=== PATIENT | female | born 1970 | race Caucasian/White ===

== ENCOUNTER 2024-05-24 01:52 | Inpatient (IN) | payer OTHER ==
[2024-05-24 02:16] VITALS: BMI 28.1
[2024-05-24] MEDS ORDERED: guaiFENesin 600 MG TABLET.ER (FP) PO PRN (03:04)
[2024-05-24] MEDS ORDERED: BENZONATATE 200 MG CAPSULE PO PRN (03:04)
[2024-05-24] MEDS ORDERED: NALOXONE (NARCAN) HCL 4 MG/0.1 ML SPRAY NS PRN (03:04)
[2024-05-24] MEDS ORDERED: BENZOCAINE/MENTHOL (CHLORASEPTIC ) LOZENGE MM PRN (03:04)
[2024-05-24] MEDS ORDERED: ACETAMINOPHEN 325 MG TABLET (FP) ONE (03:51)
[2024-05-24] MEDS: ACETAMINOPHEN 325 MG TABLET (FP) PO PRN (03:57)
[2024-05-24] MEDS ORDERED: methaDONE HCL 10 MG TABLET PO SCH (08:15)
[2024-05-24 08:29] LABS: HEMATOCRIT 33.5 % (32.4-45.2); HEMOGLOBIN 11.1 GM/dL (10.7-15.3); MCH 29.2 pg (25.7-33.7); MCHC 33.2 g/dl (32.0-36.0); MEAN PLT VOLUME 7.6 fl (7.5-11.1); PLATELET COUNT 364 10^3/uL (134-434); RBC 3.81 M/mm3 (3.60-5.2); WHITE BLOOD COUNT 6.8 K/mm3 (4.0-10.0)
[2024-05-24] MEDS ORDERED: methaDONE 80 MG, methaDONE 10 MG PO SCH (08:30)
[2024-05-24 09:25] LABS: POTASSIUM 3.4 mmol/L (3.5-5.1); SODIUM 138 mmol/L (136-145)
[2024-05-24 09:26] LABS: CHLORIDE 104 mmol/L (98-107)
[2024-05-24 09:35] LABS: ALBUMIN 3.5 g/dl (3.4-5.0); GLUCOSE,RANDOM 96 mg/dL (74-106)
[2024-05-24 09:36] LABS: ANION GAP 6 mmol/L (4-13); BLOOD UREA NITROGEN 9.2 mg/dL (7-18); CO2 29 mmol/L (21-32)
[2024-05-24 09:38] LABS: CREATININE 0.9 mg/dL (0.55-1.3); SGOT/AST 122 U/L (15-37); SGPT/ALT 159 U/L (13-61)
[2024-05-24 09:40] LABS: BILIRUBIN,TOTAL 0.3 mg/dL (0.2-1); TOT PROT 6.5 g/dl (6.4-8.2)
[2024-05-24 09:41] LABS: ALK PHOS 179 U/L (45-117)
[2024-05-24] MEDS: PRENATAL VITAMINS W/ FOLIC ACID TABLET (FP) PO SCH (10:05)
[2024-05-24] MEDS: IBUPROFEN 600 MG TABLET (FP) PO PRN (10:16)
[2024-05-24] MEDS: NICOTINE 14 MG/24 HOURS TOPICAL PATCH TD SCH (10:16)
[2024-05-24] MEDS: methaDONE 80 MG, methaDONE 10 MG PO SCH (10:19)
[2024-05-24] MEDS: NICOTINE POLACRILEX 4 MG GUM BUC PRN (10:21)
[2024-05-24] MEDS: MAGNESIUM HYDROX 2400MG/30ML ORAL SUSPENSION 30 ML CUP PO PRN (11:34)
[2024-05-24 11:56] LABS: SYPHILIS W/ RPR CONF NON-REACTIVE (NONREACTIVE)
[2024-05-24 19:28] LABS: URINE APPEARANCE CLEAR; URINE BILIRUBIN NEGATIVE (NEGATIVE); URINE COLOR YELLOW; URINE GLUCOSE (UA) NEGATIVE (NEGATIVE); URINE KETONE NEGATIVE (NEGATIVE); URINE LEUK ESTERASE NEGATIVE (NEGATIVE); URINE NITRITE NEGATIVE (NEGATIVE); URINE PROTEIN NEGATIVE (NEGATIVE); URINE UROBILINOGEN 0.2 mg/dL (0.2-1.0)
[2024-05-24] MEDS: MELATONIN 5 MG TABLETS PO SCH (21:41)
[2024-05-24] MEDS: hydrOXYzine PAMOATE 25 MG CAPSULE (FP) PO PRN (21:41)
[2024-05-24] MEDS: THIAMINE 100 MG TABLET PO SCH (21:41)
[2024-05-25] MEDS: clonazePAM 0.5 MG ODT TABLETS SL SCH (09:53)
[2024-05-25] MEDS: FLUoxetine HCL 20 MG CAPSULE PO SCH (09:53)
[2024-05-25] MEDS: BACLOFEN 10 MG TABLET (FP) PO SCH (12:27)
[2024-05-25] MEDS: PNEUMOC 20-VAL CONJ-DIP CRM/PF 0.5 ML SYRINGE IM ONE (12:29)
[2024-05-25] MEDS: SUMAtriptan SUCCINATE 25 MG TABLET PO PRN (14:49)
[2024-05-25] MEDS: DICLOFENAC SODIUM 25 MG TABLET.DR PO PRN (19:00)
[2024-05-25] MEDS: IBUPROFEN 400 MG TABLET (FP) PO PRN (21:20)
[2024-05-26] MEDS: hydrOXYzine PAMOATE 50 MG CAPSULE (FP) PO PRN (19:07)
[2024-05-26] MEDS: MAG HYDROX/AL HYDROX/SIMETH 30 ML UNIT-DOSE CUP PO PRN (21:25)
[2024-05-27] MEDS: DOCUSATE SODIUM 100 MG CAPSULE (FP) PO PRN (10:23)
[2024-05-27] MEDS: PANTOPRAZOLE 40 MG TABLET PO SCH (13:43)
[2024-05-28] MEDS: LIDOCAINE 5% TOPICAL PATCH TP SCH (16:53)
[2024-05-28] MEDS: METHYL SALICYLATE/MENTHOL 30 GM TUBE TP SCH (16:56)
[2024-05-28] MEDS: LIDOCAINE PATCH REMOVAL MC SCH (21:30)
[2024-05-31 11:33] LABS: POTASSIUM 4.9 mmol/L (3.5-5.1)
[2024-05-31 11:36] LABS: CALCIUM 9.1 mg/dL (8.5-10.1)
[2024-05-31 11:37] LABS: ALBUMIN 3.4 g/dl (3.4-5.0); BLOOD UREA NITROGEN 11.9 mg/dL (7-18)
[2024-05-31 11:40] LABS: CREATININE 0.9 mg/dL (0.55-1.3)
[2024-05-31 11:41] LABS: BILIRUBIN,TOTAL 0.6 mg/dL (0.2-1)
[2024-05-31 11:42] LABS: TOT PROT 6.7 g/dl (6.4-8.2)
[2024-06-01] MEDS: POLYETHYLENE GLYCOL (HEALTHYLAX) 3350 17 GM PACKET PO PRN (17:52)
[2024-06-08] MEDS: FLUoxetine HCL 20 MG CAPSULE PO SCH (09:56)
[2024-06-08] MEDS ORDERED: clonazePAM 0.5 MG ODT TABLETS SL SCH (10:00)
[2024-06-08] MEDS: clonazePAM 0.5 MG ODT TABLETS SL SCH (10:00)
[2024-06-13] MEDS: LOPERAMIDE HCL 2 MG CAPSULE PO PRN (16:48)
[2024-06-14 06:48] VITALS: BP 151/93; PULSE 95; RESP 16; TEMP 98.1
== END 2024-06-14 10:55 | disposition home or self-care (01) | DRG 772 ==
LOC: YASAS 01:52 → Y3N 03:58 → Y3NR 04:10 → Y5N 12:49
PROVIDERS: ADMIT Allergy & Immunology; ATTEND Psychiatry & Neurology Pain Medicine
PROC: HZ42ZZZ Group Counseling for Substance Abuse Treatment, Cognitive-Behavioral (ICD-10-PCS; principal; 2024-05-24)
DX: F11.20 Opioid dependence, uncomplicated (principal); F14.20 Cocaine dependence, uncomplicated; F17.210 Nicotine dependence, cigarettes, uncomplicated; F19.282 Other psychoactive substance dependence with psychoactive substance-induced sleep disorder; F19.24 Other psychoactive substance dependence with psychoactive substance-induced mood disorder; F32.A Depression, unspecified; I10 Essential (primary) hypertension; K21.9 Gastro-esophageal reflux disease without esophagitis; K59.09 Other constipation; S92.501D Displaced unspecified fracture of right lesser toe(s), subsequent encounter for fracture with routine healing; W19.XXXD Unspecified fall, subsequent encounter; Z59.00 Homelessness unspecified
CPT/HCPCS: 36415; 71046-TC-FY; 73610-TC-RT-FY; 73630-TC-RT-FY; 80053; 80305; 80307; 81003; 81025; 85027; 86780; 86803; 87811; 93005; 93010; 99283-25; J0475